=== PATIENT | female | born 1950 | race Caucasian/White ===

== ENCOUNTER → 2017-01-15 | Outpatient (REF) | payer OTHER | LOC: M SFHCLERA 11:42 | PROVIDERS: ATTEND Family Medicine | DX: R32 Unspecified urinary incontinence (principal) ==

== ENCOUNTER → 2017-01-30 | Outpatient (CLI) | payer OTHER ==
--- NOTE | 2017-01-30 15:09 | REPMRS ---
Patient History The patient states she has not had a clinical breast exam in over a year. Patient has history of other cancer at age 37 and had first child at age 33. No known family history of cancer. Took unspecified hormones for 3 years. Digital Mammo Screening Bilat: January 30, 2017 - Exam #: [id number] Bilateral CC and MLO view(s) were taken. Technologist: Stacy Hamomnd, Technologist Prior study comparison: November 23, 2015, digital bilateral screening mammo, performed at [facility]. 2007, bilateral mammogram, performed at [facility]. FINDINGS: There are scattered fibroglandular densities. There has been no change in the appearance of the mammogram from the prior studies. There is a mild amount of residual fibroglandular tissue which is fairly symmetric. There is no interval development of dominant mass, architectural distortion, or clustered microcalcification suggestive of malignancy. ASSESSMENT: BI-RADS/ACR category 1 mammogram. Negative. Recommendation Routine screening mammogram in 1 year (for women over age 40). This mammogram was interpreted with the aid of an FDA-approved computer-aided dectection system. Electronically Signed By: Mike Gray MD 01/30/17 [id number]
== END ==
LOC: M RAD 13:37
DX: Z12.31 Encounter for screening mammogram for malignant neoplasm of breast (principal)

== ENCOUNTER → 2018-02-18 | Outpatient (REF) | payer OTHER ==
[2018-02-18 20:46] LABS: BASO % 0.5 % (0.0-1.0); EOS # 0.1 10^3/uL (0.0-0.50); EOS % 1.4 % (0.0-3.0); HEMATOCRIT 37.2 % (36.0-47.0); HEMOGLOBIN 11.6 g/dl (12.0-15.5); IMMATURE GRANULOCYTE % 0.3 % (0-3.0); LYMPH # 1.4 10^3/uL (1.5-4.5); LYMPH % 24.4 % (24.0-44.0); MEAN CORPUSCULAR HEMOGLOBIN 26.4 pg (27.0-33.0); MEAN CORPUSCULAR HGB CONC 31.2 g/dl (32.0-36.5); MEAN CORPUSCULAR VOLUME 84.7 fl (80.0-96.0); MONO # 0.6 10^3/uL (0.0-0.8); MONO % 11.1 % (0.0-5.0); NEUTROPHILS # 3.6 10^3/uL (1.8-7.7); NEUTROPHILS % 62.3 % (36.0-66.0); PLATELET COUNT, AUTOMATED 283 10^3/uL (150-450); RED BLOOD COUNT 4.39 10^6/uL (4.00-5.40); RED CELL DISTRIBUTION WIDTH 15.4 % (11.5-14.5); WHITE BLOOD COUNT 5.8 10^3/uL (4.0-10.0)
[2018-02-18 21:04] LABS: ALBUMIN 3.5 GM/DL (3.2-5.2); ALBUMIN/GLOBULIN RATIO 0.95 (1.00-1.93); ALKALINE PHOSPHATASE 111 U/L (45-117); ALT/SGPT 23 U/L (12-78); ANION GAP 7 MEQ/L (8-16); AST/SGOT 20 U/L (7-37); BILIRUBIN,TOTAL 0.5 MG/DL (0.2-1.0); BLOOD UREA NITROGEN 33 MG/DL (7-18); CALCIUM LEVEL 8.5 MG/DL (8.8-10.2); CARBON DIOXIDE LEVEL 27 MEQ/L (21-32); CHLORIDE LEVEL 105 MEQ/L (98-107); CHOLESTEROL LEVEL 297 MG/DL (<200); CHOLESTEROL RISK RATIO 7.815 (<5); CREATININE FOR GFR 1.42 MG/DL (0.55-1.30); GLOMERULAR FILTRATION RATE 39.4 (>45); GLUCOSE, FASTING 78 MG/DL (70-100); HDL CHOLESTEROL 38 MG/DL (>40); LDL CHOLESTEROL 180.8 MG/DL (<100); NON-HDL-C 259 MG/DL; POTASSIUM SERUM 4.6 MEQ/L (3.5-5.1); SODIUM LEVEL 139 MEQ/L (136-145); TOTAL PROTEIN 7.2 GM/DL (6.4-8.2); TRIGLYCERIDES LEVEL 391 MG/DL (<150)
[2018-02-18 21:10] LABS: CREATININE, URINE 82.1 MG/DL; MALB URINE SIEMENS 7.4 MG/L
[2018-02-18 21:48] LABS: ESTIMATED AVERAGE GLUCOSE 103 MG/DL (60-110); HEMOGLOBIN A1c 5.2 %
== END ==
LOC: M SFHCLERA 15:24
DX: E11.9 Type 2 diabetes mellitus without complications (principal)
CPT/HCPCS: 84443

== ENCOUNTER → 2018-05-21 | Outpatient (REF) | payer OTHER | LOC: M SFHCLERA 15:21 | DX: E78.5 Hyperlipidemia, unspecified (principal) ==

== ENCOUNTER → 2018-07-06 | Outpatient (CLI) | payer OTHER | LOC: M RAD 10:06 | DX: Z12.31 Encounter for screening mammogram for malignant neoplasm of breast (principal) | CPT/HCPCS: 77067 ==

== ENCOUNTER 2018-07-17 08:07 | Day surgery (SDC) | payer OTHER ==
[2018-07-17] MEDS: NS 1,000 ML IV (08:56)
[2018-07-17] MEDS ORDERED: PROPOFOL 200 MG/20 ML VIAL As Ordered ×2 (09:24)
[2018-07-17] MEDS ORDERED: LIDOCAINE 2% INJ 100 MG/5 ML SDV (FOR ANES.) As Ordered (09:24)
== END 2018-07-17 10:37 | disposition home or self-care (01) ==
LOC: M OPP 08:07
DX: Z12.11 Encounter for screening for malignant neoplasm of colon (principal); D12.2 Benign neoplasm of ascending colon; K64.0 First degree hemorrhoids; I12.9 Hypertensive chronic kidney disease with stage 1 through stage 4 chronic kidney disease, or unspecified chronic kidney disease; E78.5 Hyperlipidemia, unspecified; E11.9 Type 2 diabetes mellitus without complications; R06.02 Shortness of breath; F32.9 Major depressive disorder, single episode, unspecified; N18.9 Chronic kidney disease, unspecified; R32 Unspecified urinary incontinence; Z88.8 Allergy status to other drugs, medicaments and biological substances; Z79.82 Long term (current) use of aspirin; Z79.899 Other long term (current) drug therapy; Z79.84 Long term (current) use of oral hypoglycemic drugs
CPT/HCPCS: 45380

== ENCOUNTER → 2018-11-24 | Outpatient (REF) | payer MEDICARE ==
[~2018-11-24] MED LIST: ASPI1CHW2 PO; ASPI81TA85 PO; GLIM2TAB PO; LISINOP/HCTZ PO; PIOG1TAB37 PO; PRAV20TA2 PO; VITA100066 PO
[2018-11-24 20:29] LABS: CALCIUM LEVEL 8.3 MG/DL (8.8-10.2); CREATININE FOR GFR 1.36 MG/DL (0.55-1.30); FREE T4 0.97 NG/DL (0.76-1.46); GLOMERULAR FILTRATION RATE 41.3 (>45); POTASSIUM SERUM 4.6 MEQ/L (3.5-5.1); THYROID STIMULATING HORMONE 3.66 uIU/ML (0.358-3.740)
[2018-11-24 20:34] LABS: HEMOGLOBIN A1c 5.5 %
== END ==
LOC: M SFHCLERA 16:09
PROVIDERS: ATTEND Family Medicine
DX: N18.3 Chronic kidney disease, stage 3 (moderate) (principal); E11.22 Type 2 diabetes mellitus with diabetic chronic kidney disease; R79.89 Other specified abnormal findings of blood chemistry

== ENCOUNTER → 2019-02-08 | Outpatient (REF) | payer MEDICARE ==
[2019-02-08 12:26] LABS: CHOLESTEROL RISK RATIO 5.604 (<5)
== END ==
LOC: M SFHCLERA 09:04
PROVIDERS: ATTEND Family Medicine
DX: E78.5 Hyperlipidemia, unspecified (principal)

== ENCOUNTER 2019-04-13 08:59 | Emergency (ER) | payer MEDICARE ==
[~2019-04-13] VITALS: Ht 170.2 cm; Wt 136.4 kg
[2019-04-13] MEDS ORDERED: PRAV80TA2 PO (09:18)
--- NOTE | 2019-04-13 09:51 | REP ---
Left knee five views : There is no fracture or dislocation. Mineralization and joint spaces are normal. There are no calcifications or foreign bodies. Enthesophyte formation is incidentally identified at the upper pole of the patella. Impression: Negative left knee . Electronically Signed by Mike Lopez MD 04/13/2019 09:43 A
[2019-04-13 11:14] VITALS: BP 146/85
== END 2019-04-13 11:19 | disposition home or self-care (01) ==
LOC: EDBD 08:59 → M ED 08:59
DX: S80.02XA Contusion of left knee, initial encounter (principal); V58.4XXA Person boarding or alighting a pick-up truck or van injured in noncollision transport accident, initial encounter; Y92.89 Other specified places as the place of occurrence of the external cause; E11.9 Type 2 diabetes mellitus without complications; I10 Essential (primary) hypertension; E78.5 Hyperlipidemia, unspecified; M51.36 Other intervertebral disc degeneration, lumbar region; Z91.048 Other nonmedicinal substance allergy status; Z79.899 Other long term (current) drug therapy; Z79.82 Long term (current) use of aspirin

== ENCOUNTER → 2019-05-17 | Outpatient (REF) | payer MEDICARE ==
[~2019-05-17] MED LIST changes: +PRAV80TA2 PO
[2019-05-17 12:20] LABS: CALCIUM LEVEL 8.6 MG/DL (8.8-10.2); CHOLESTEROL RISK RATIO 5.648 (<5); CREATININE FOR GFR 1.66 MG/DL (0.55-1.30); GLOMERULAR FILTRATION RATE 32.8 (>45); POTASSIUM SERUM 5.2 MEQ/L (3.5-5.1)
[2019-05-17 14:17] LABS: HEMOGLOBIN A1c 5.9 %
== END ==
LOC: M SFHCLERA 09:27
PROVIDERS: ATTEND Nurse Practitioner Family
DX: E11.9 Type 2 diabetes mellitus without complications (principal); E78.5 Hyperlipidemia, unspecified; N18.3 Chronic kidney disease, stage 3 (moderate)

== ENCOUNTER → 2019-06-30 | Outpatient (REF) | payer MEDICARE ==
[~2019-06-30] MED LIST changes: -GLIM2TAB PO; +GLIM2TAB4 PO
[2019-06-30 18:24] LABS: CALCIUM LEVEL 8.5 MG/DL (8.8-10.2); CREATININE FOR GFR 1.77 MG/DL (0.55-1.30); GLOMERULAR FILTRATION RATE 30.5 (>45); POTASSIUM SERUM 4.6 MEQ/L (3.5-5.1)
[2019-06-30 19:01] LABS: APPEARANCE, URINE CLOUDY (CLEAR); BACTERIA, URINE AUTO 3+ (NEGATIVE); BILIRUBIN, URINE AUTO NEGATIVE (NEGATIVE); BLOOD, URINE BLOOD 3+ (NEGATIVE); COLOR, URINE YELLOW (YELLOW); GLUCOSE, URINE (UA) AUTO NEGATIVE (NEGATIVE); KETONE, URINE AUTO NEGATIVE (NEGATIVE); LEUKOCYTE ESTERASE, URINE AUTO 3+ (NEGATIVE); NITRITE, URINE AUTO NEGATIVE (NEGATIVE); PROTEIN, URINE AUTO NEGATIVE (NEGATIVE); RBC, URINE AUTO 51 /HPF (0-3); SPECIFIC GRAVITY URINE AUTO 1.013 (1.002-1.035); SQUAMOUS EPITHELIAL CELL UR AU 0 /HPF (0-6); UROBILINOGEN, URINE AUTO 0.2 mg/dL (0.0-2.0); WBC, URINE AUTO 166 /HPF (0-3)
== END ==
LOC: M SFHCLERA 10:22
PROVIDERS: ATTEND Family Medicine
DX: R30.0 Dysuria (principal); N18.3 Chronic kidney disease, stage 3 (moderate); G25.81 Restless legs syndrome; M25.562 Pain in left knee
CPT/HCPCS: 80048; 81001; 82728; 87088; 87186; 90682; G0008; G0463

== ENCOUNTER → 2019-08-05 | Outpatient (REF) | payer MEDICARE ==
[~2019-08-05] MED LIST changes: +GLIM2TAB2 PO; -GLIM2TAB4 PO
== END ==
LOC: M SFHCLERA 12:11
PROVIDERS: ATTEND Family Medicine
DX: E11.9 Type 2 diabetes mellitus without complications (principal); N18.3 Chronic kidney disease, stage 3 (moderate); E78.5 Hyperlipidemia, unspecified; Z53.8 Procedure and treatment not carried out for other reasons

== ENCOUNTER → 2020-04-13 | Outpatient (CLI) | payer MEDICARE ==
[~2020-04-13] MED LIST changes: -ASPI81TA85 PO; +ASPI81TA86 PO; -GLIM2TAB2 PO; +GLIM2TAB4 PO
[2020-04-13 09:21] LABS: BASO % 0.9 % (0.0-1.0); EOS # 0.1 10^3/uL (0.0-0.5); EOS % 2.6 % (0.0-3.0); HEMATOCRIT 34.8 % (36.0-47.0); HEMOGLOBIN 10.5 g/dl (12.0-15.5); LYMPH % 24.2 % (24.0-44.0); MEAN CORPUSCULAR HEMOGLOBIN 26.6 pg (27.0-33.0); MEAN CORPUSCULAR HGB CONC 30.2 g/dl (32.0-36.5); MEAN CORPUSCULAR VOLUME 88.1 fl (80.0-96.0); MONO # 0.5 10^3/uL (0.0-0.8); MONO % 12.1 % (0.0-5.0); NEUTROPHILS # 2.6 10^3/uL (1.5-8.5); PLATELET COUNT, AUTOMATED 214 10^3/uL (150-450); RED BLOOD COUNT 3.95 10^6/uL (4.00-5.40); WHITE BLOOD COUNT 4.3 10^3/uL (4.0-10.0)
[2020-04-13 10:41] LABS: CALCIUM LEVEL 8.5 MG/DL (8.8-10.2); CHOLESTEROL RISK RATIO 6.942 (<5); CREATININE FOR GFR 1.8 MG/DL (0.55-1.30); GLOMERULAR FILTRATION RATE 29.8 (>45); POTASSIUM SERUM 4.6 MEQ/L (3.5-5.1)
[2020-04-13 11:35] LABS: HEMOGLOBIN A1c 5.4 %
[2020-04-13 18:12] LABS: MALB URINE SIEMENS 5.9 MG/L; MAU/CREAT RATIO 4.7 MCG/MG (0.0-30.0)
== END ==
LOC: M WUC 08:33
PROVIDERS: ATTEND Family Medicine
DX: E78.5 Hyperlipidemia, unspecified (principal); E11.22 Type 2 diabetes mellitus with diabetic chronic kidney disease; N18.9 Chronic kidney disease, unspecified

== ENCOUNTER → 2020-05-15 | Outpatient (CLI) | payer MEDICARE | LOC: M WUC 11:35 | PROVIDERS: ATTEND Physician Assistant | DX: S16.1XXA Strain of muscle, fascia and tendon at neck level, initial encounter (principal); X58.XXXA Exposure to other specified factors, initial encounter; Y92.89 Other specified places as the place of occurrence of the external cause; Y93.9 Activity, unspecified; Y99.9 Unspecified external cause status ==

== ENCOUNTER → 2020-07-15 | Outpatient (CLI) | payer MEDICARE ==
--- NOTE | 2020-07-15 12:35 | REP ---
INDICATION: LOW BACK PAIN COMPARISON: 11/11/2013 TECHNIQUE: AP, lateral, bilateral oblique, and coned-down views. FINDINGS: Alignment and lordosis is maintained. The vertebral bodies including transverse process and spinous processes are intact and normal. There is no evidence for acute fracture / compression injury or subluxation. No evidence for spondylolysis or spondylolisthesis. Moderate multilevel degenerative changes including endplate sclerosis, osteophytosis, and mild hypertrophic facet changes. Minimal disc space narrowing at L5-S1 noted. These findings appear relatively stable when compared to prior examination. IMPRESSION: Relatively stable moderate multilevel degenerative spondylosis similar to 2013. <Electronically signed by Sathya Martinez > 07/15/20 [id number]
== END ==
LOC: M WUC 10:30
PROVIDERS: ATTEND Nurse Practitioner Family
DX: S39.012A Strain of muscle, fascia and tendon of lower back, initial encounter (principal); X58.XXXA Exposure to other specified factors, initial encounter; Y92.89 Other specified places as the place of occurrence of the external cause; M51.37 Other intervertebral disc degeneration, lumbosacral region

== ENCOUNTER → 2021-01-11 | Outpatient (CLI) | payer MEDICARE ==
[2021-01-11 14:28] LABS: CALCIUM LEVEL 8.8 MG/DL (8.8-10.2); CREATININE FOR GFR 1.62 MG/DL (0.55-1.30); GLOMERULAR FILTRATION RATE 33.5 (>45); POTASSIUM SERUM 4.5 MEQ/L (3.5-5.1)
[2021-01-11 14:29] LABS: CHOLESTEROL RISK RATIO 5.073 (<5)
[2021-01-11 16:05] LABS: MALB URINE SIEMENS 19.3 MG/L; MAU/CREAT RATIO 12.8 MCG/MG (0.0-30.0)
[2021-01-11 18:34] LABS: HEMOGLOBIN A1c 5.3 %
== END ==
LOC: M WUC 08:51
PROVIDERS: ATTEND Family Medicine
DX: E53.8 Deficiency of other specified B group vitamins (principal); E11.9 Type 2 diabetes mellitus without complications; E78.5 Hyperlipidemia, unspecified

== ENCOUNTER 2021-04-03 10:59 | Emergency (ER) | payer MEDICARE ==
[~2021-04-03] VITALS: Ht 172.7 cm; Wt 129.8 kg
[2021-04-03 10:59] VITALS: BP 142/72
[2021-04-03] MEDS ORDERED: ACET-910 PO (11:33)
[2021-04-03] MEDS ORDERED: LISI10TA15 (11:33)
--- NOTE | 2021-04-03 11:59 | REP ---
INDICATION: trauma COMPARISON: None. TECHNIQUE: Two orthogonal views of the right humerus. FINDINGS: There is an acute nondisplaced fracture involving the proximal humerus extending through the greater tuberosity. Remainder of the examination appears normal. IMPRESSION: Fracture involving the greater tuberosity of the proximal humerus.. <Electronically signed by Sathya Martinez > 04/03/21 [id number]
[2021-04-03] MEDS ORDERED: TRAM50TA2 PO (14:14)
== END 2021-04-03 14:40 | disposition home or self-care (01) ==
LOC: M ED 10:59
DX: S42.251A Displaced fracture of greater tuberosity of right humerus, initial encounter for closed fracture (principal); W01.0XXA Fall on same level from slipping, tripping and stumbling without subsequent striking against object, initial encounter; Y92.009 Unspecified place in unspecified non-institutional (private) residence as the place of occurrence of the external cause; Y93.89 Activity, other specified; Y99.8 Other external cause status; I12.9 Hypertensive chronic kidney disease with stage 1 through stage 4 chronic kidney disease, or unspecified chronic kidney disease; N18.4 Chronic kidney disease, stage 4 (severe); E11.9 Type 2 diabetes mellitus without complications; Z79.82 Long term (current) use of aspirin; Z79.899 Other long term (current) drug therapy

== ENCOUNTER → 2021-07-16 | Outpatient (CLI) | payer MEDICARE ==
[~2021-07-16] MED LIST changes: +ACET-910 PO; +LISI10TA15; +TRAM50TA2 PO
--- NOTE | 2021-07-16 14:13 | REP ---
INDICATION: R/O ROTATOR CUFF TEAR/RUPTURE. COMPARISON: Radiographs 04/03/2021. TECHNIQUE: Coronal oblique T1, T2 fat sat, sagittal oblique T2 fat sat, axial T2 fat sat, gradient echo. Study is limited due motion. FINDINGS: Rotator cuff: There is a high-grade partial tear of the supraspinatus tendon, which does not definitely extend through the entire thickness of the tendon. Acromioclavicular joint: There are moderate hypertrophic degenerative changes of the acromioclavicular joint. Acromion: Type 2 Biceps Tendon: In bicipital groove, with possible mild tenosynovitis. Deltoid muscle: No abnormal signal. Biceps labral complex: Grossly intact Labrum: No gross tear. Cartilage: No defects. Bone marrow: There is nondisplaced fracture of the greater tuberosity of the proximal humerus. Joint fluid: No effusion. IMPRESSION: High-grade partial tear supraspinatus tendon which does not definitely extend through the entire thickness of the tendon. Moderate hypertrophic degenerative changes of the acromioclavicular joint. No gross labral tear.There is nondisplaced fracture of the greater tuberosity of the proximal humerus. <Electronically signed by Mike Gray > 07/16/21 [id number]
== END ==
LOC: M RAD 10:55
PROVIDERS: ATTEND Physician Assistant
DX: S42.251D Displaced fracture of greater tuberosity of right humerus, subsequent encounter for fracture with routine healing (principal); X58.XXXD Exposure to other specified factors, subsequent encounter

== ENCOUNTER → 2021-07-27 | Outpatient (CLI) | payer MEDICARE ==
[2021-07-27 11:54] LABS: BASO % 0.8 % (0.0-1.0); EOS # 0.1 10^3/uL (0.0-0.5); HEMATOCRIT 34.5 % (36.0-47.0); HEMOGLOBIN 10.4 g/dl (12.0-15.5); LYMPH # 1.2 10^3/uL (1.5-5.0); MEAN CORPUSCULAR HEMOGLOBIN 26.3 pg (27.0-33.0); MEAN CORPUSCULAR HGB CONC 30.1 g/dl (32.0-36.5); MEAN CORPUSCULAR VOLUME 87.1 fl (80.0-96.0); MONO # 0.5 10^3/uL (0.0-0.8); MONO % 9.6 % (2.0-8.0); NEUTROPHILS # 3.3 10^3/uL (1.5-8.5); PLATELET COUNT, AUTOMATED 265 10^3/uL (150-450); RED BLOOD COUNT 3.96 10^6/uL (4.00-5.40); WHITE BLOOD COUNT 5.1 10^3/uL (4.0-10.0)
[2021-07-27 12:19] LABS: CALCIUM LEVEL 9.1 MG/DL (8.8-10.2); CREATININE FOR GFR 1.59 MG/DL (0.55-1.30); GLOMERULAR FILTRATION RATE 34.2 (>39); POTASSIUM SERUM 4.5 MEQ/L (3.5-5.1)
[2021-07-27 14:15] LABS: HEMOGLOBIN A1c 5.4 %
== END ==
LOC: M WUC 10:03
PROVIDERS: ATTEND Family Medicine
DX: E11.22 Type 2 diabetes mellitus with diabetic chronic kidney disease (principal); Z86.2 Personal history of diseases of the blood and blood-forming organs and certain disorders involving the immune mechanism

== ENCOUNTER 2023-07-19 22:11 | Emergency (ER) | payer MEDICARE ==
[~2023-07-19] VITALS: Ht 172.7 cm; Wt 111.2 kg
[2023-07-19 22:11] VITALS: BP 176/78; TEMP 96.6; O2SAT 98
[~2023-07-19 22:11] MED LIST changes: -LISI10TA15; +LISI10TA24
[2023-07-19] MEDS ORDERED: dexAMETHasone 20MG/5ML VIAL IV ONE (23:25)
[2023-07-19] MEDS ORDERED: NS 1,000 ML IV ONE (23:25)
[2023-07-19] MEDS ORDERED: FAMOTIDINE 20MG/2ML VIAL IVP ONE (23:25)
[2023-07-20] MEDS ORDERED: diphenhydrAMINE 50MG CAP PO ONE (01:10)
[2023-07-20] MEDS ORDERED: PRED20TA PO (01:17)
== END 2023-07-20 01:30 | disposition home or self-care (01) ==
LOC: M ED 22:11
DX: L50.9 Urticaria, unspecified (principal); E11.9 Type 2 diabetes mellitus without complications; I10 Essential (primary) hypertension; E78.5 Hyperlipidemia, unspecified; N18.4 Chronic kidney disease, stage 4 (severe); Z91.018 Allergy to other foods; Z79.82 Long term (current) use of aspirin; Z79.811 Long term (current) use of aromatase inhibitors; Z79.899 Other long term (current) drug therapy
CPT/HCPCS: 96361; 96374; 99283; J1100

== ENCOUNTER → 2024-09-24 | Outpatient (CLI) | payer MEDICARE ==
[~2024-09-24] MED LIST changes: +PRED20TA PO
== END ==
LOC: M WUC 08:00
PROVIDERS: ATTEND Physician Assistant
DX: M79.671 Pain in right foot (principal); L03.115 Cellulitis of right lower limb; M19.071 Primary osteoarthritis, right ankle and foot

== ENCOUNTER → 2024-09-24 | Outpatient (REF) | payer MEDICARE | LOC: M WUC 16:31 | PROVIDERS: ATTEND Physician Assistant | DX: M79.671 Pain in right foot (principal) ==